=== PATIENT | male | born 1950 | race Caucasian/White ===

== ENCOUNTER → 2016-09-10 | Day surgery (SDC) | payer BC ==
[2016-09-05 16:14] VITALS: BMI 31.6
[~2016-09-10] MED LIST: LACTATED RINGERS 1,000 ML IV ONE; LACTATED RINGERS 1,000 ML IV SCH; LIDOCAINE 1% 20 ML VIAL (10MG/ML) FOR IV START INTRADERMA PRN; LIDOCAINE 1% INJ 10MG/ML (20 ML MDV) ONE; PROPOFOL 10 MG/ML 20 ML VIAL IV ONE
[2016-09-10 07:14] VITALS: TEMP 97.1
[2016-09-10 07:20] LABS: Glucose,Whole Blood 141 mg/dL (75-99)
--- NOTE | 2016-09-10 07:54 | P.PCN ---
Date of Procedure: 09/10/16 Preoperative Diagnosis: Screening colonoscopy Postoperative Diagnosis: Questionable mucosal change in cecum, sigmoid diverticuli, internal hemorrhoids , prominent prostate Procedure(s) Performed: Colonoscopy, cold biopsy of cecal mucosa Anesthesia: MAC Surgeon: Erin Salgado Estimated Blood Loss (ml): 0 IV fluids (ml): 300 Pathology: other (Biopsy cecal mucosa) Condition: stable Disposition: PACU Indications for Procedure: Patient's last colonoscopy 2003 Operative Findings: Questionable mucosal change cecum, sigmoid diverticuli, internal hemorrhoids, prominent prostate Description of Procedure: The patient was taken to the endoscopy suite and following sedation rectal exam was performed. The patient was noted to have good sphincter tone with no masses. The prostate was somewhat prominent. Colonoscope was passed through the anus into the rectum. Was passed into the sigmoid colon which was somewhat tortuous. Was able to be advanced however there were prominent diverticuli noted. Was passed to the splenic flexure through the transverse colon hepatic flexure right colon down to the area of the cecum. Circumferential observation mucosa to cecum revealed some mild prominence of the mucosa near the ileocecal valve and a cold biopsy was obtained. The scope was carefully withdrawn being careful to evaluate the remainder of the mucosa of the colon. No other mucosal abnormalities of concern were identified. The patient was noted as stated to have sigmoid diverticuli. Scope was brought down into the rectum where it was retroflexed and internal hemorrhoids were identified. It should be noted approximately 6 minutes were taken to withdraw the scope from the area of the cecum to the rectum. Impression/plan: 1. Mucosal changes of the cecum 2. Sigmoid diverticuli 3. Internal hemorrhoids 4. Prominent prostate Plan: 1. Await results of biopsy of the cecal area 2. Conservative management of diverticuli and hemorrhoids 3. Will discuss with family prominent prostate and recommend this is followed up further by his primary care physician
--- NOTE | 2016-09-10 07:56 | P.DS ---
Providers Attending physician: Erin Salgado Primary care physician: Wang Godoy Plan - Discharge Summary Discharge Medication List Allopurinol [Zyloprim] 100 mg PO DAILY 09/05/16 [History] Ascorbic Acid [Vitamin C] 500 mg PO DAILY 09/05/16 [History] Aspirin 81 mg PO DAILY 09/05/16 [History] Atorvastatin [Lipitor] 80 mg PO HS 09/05/16 [History] Lisinopril [Zestril] 5 mg PO QAM 09/05/16 [History] [place]-3 Fatty Acids/Fish Oil [Fish Oil 1,000 mg Softgel] 1 each PO DAILY [History] metFORMIN HCL [Metformin HCl] 500 mg PO BID 09/05/16 [History] Follow up Appointment(s)/Referral(s): Wang Godoy MD [Primary Care Provider] - 1 Week (Patient noted to have prominent prostate) Activity/Diet/Wound Care/Special Instructions: Do not drive today Biopsy was obtained and he may note some blood in his stool if this is more than just a small amount please call Dr. Lancaster Discharge Disposition: HOME SELF-CARE
[2016-09-10 08:18] VITALS: BP 122/74; PULSE 69; RESP 18
== END | disposition home or self-care (01) ==
LOC: ORWHC2ENDO 06:47
PROVIDERS: ATTEND Surgery
DX: Z12.11 Encounter for screening for malignant neoplasm of colon (principal); K63.89 Other specified diseases of intestine; Z88.2 Allergy status to sulfonamides; I10 Essential (primary) hypertension; E78.5 Hyperlipidemia, unspecified; M10.9 Gout, unspecified; F17.200 Nicotine dependence, unspecified, uncomplicated; E11.9 Type 2 diabetes mellitus without complications; K64.8 Other hemorrhoids; K57.30 Diverticulosis of large intestine without perforation or abscess without bleeding; N42.9 Disorder of prostate, unspecified; Z79.84 Long term (current) use of oral hypoglycemic drugs; Z79.899 Other long term (current) drug therapy; Z79.82 Long term (current) use of aspirin
CPT/HCPCS: 88305; 45380; J2001; J2704

== ENCOUNTER → 2016-12-17 | Outpatient (CLI) | payer BC ==
[2016-12-17 08:16] LABS: Anion Gap 12 mmol/L; Blood Urea Nitrogen 17 mg/dL (9-20); Calcium 9.1 mg/dL (8.4-10.2); Carbon Dioxide 25 mmol/L (22-30); Chloride 105 mmol/L (98-107); Cholesterol 118 mg/dL (<200); Glucose 123 mg/dL (74-99); HDL Cholesterol 28 mg/dL (40-60); Non-African American GFR(MDRD) >60 (>60 ml/min/1.73 sqM); Potassium 4.6 mmol/L (3.5-5.1); Sodium 142 mmol/L (137-145); Triglycerides 174 mg/dL (<150); Uric Acid 6.7 mg/dL (3.5-8.5)
[2016-12-17 09:56] LABS: Hemoglobin A1C 6.7 % (4.2-6.1)
== END | disposition home or self-care (01) ==
LOC: LABWHC1 07:06
PROVIDERS: ATTEND Internal Medicine
DX: E78.2 Mixed hyperlipidemia (principal); E11.69 Type 2 diabetes mellitus with other specified complication; E87.8 Other disorders of electrolyte and fluid balance, not elsewhere classified; M10.9 Gout, unspecified
CPT/HCPCS: 36415; 80048; 80061; 83036; 84550

== ENCOUNTER → 2019-12-30 | Outpatient (CLI) | payer MEDICARE ==
--- NOTE | 2019-12-30 12:11 | FL ---
EXAMINATION TYPE: FL barium swallow DATE OF EXAM: 12/30/2019 CLINICAL INDICATION: 69-year-old male R13.10, dysphagia, thicker solid consistencies sticking in the throat. COMPARISON: None Total Fluoroscopy Time: 2 minutes 49 seconds Total images: 47 FINDINGS: The swallowing mechanism is normal. There is moderate hypertrophy of the cricopharyngeus muscle. The thoracic portion has a normal course and caliber and normal motility. There is a slightly thickened notch along the lateral aspect of the gastroesophageal junction, referr ed to images 41 and 42. Otherwise, the mucosa is normal and no persistent filling defect is encounte red. There is a moderate-sized sliding hiatal hernia. A single episode of moderate gastroesophageal reflux was encountered during supine Valsalva. IMPRESSION: 1. Moderate CP muscle hypertrophy. Correlate as to if this could be contributing to the patient's sym ptoms. 2. Moderate-sized sliding hiatal hernia with a single episode of moderate gastroesophageal reflux. 3. Slightly thickened notch along the lateral aspect of the gastroesophageal junction probably a prom inent mucosal fold. Consider direct visualization to exclude a small mucosal lesion.
== END | disposition home or self-care (01) ==
LOC: RADUSWWP 10:04
PROVIDERS: ATTEND Family Medicine
DX: K44.9 Diaphragmatic hernia without obstruction or gangrene (principal); M62.89 Other specified disorders of muscle; K21.9 Gastro-esophageal reflux disease without esophagitis
CPT/HCPCS: 74220

== ENCOUNTER 2020-02-10 06:48 | Day surgery (SDC) | payer MEDICARE ==
[2020-02-08 11:18] VITALS: BMI 30.3
[~2020-02-10 06:48] MED LIST changes: -LACTATED RINGERS 1,000 ML IV ONE; -LIDOCAINE 1% 20 ML VIAL (10MG/ML) FOR IV START INTRADERMA PRN; -LIDOCAINE 1% INJ 10MG/ML (20 ML MDV) ONE; -PROPOFOL 10 MG/ML 20 ML VIAL IV ONE
[2020-02-10 07:10] VITALS: TEMP 97.2
[2020-02-10] MEDS ORDERED: LIDOCAINE 1% (10MG/ML) FOR IV START INTRADERMA ONE (07:20)
[2020-02-10 07:22] LABS: Glucose,Whole Blood 134 mg/dL (75-99)
[2020-02-10] MEDS ORDERED: LIDOCAINE 1% INJ 10MG/ML (20 ML MDV) ONE (07:45)
[2020-02-10] MEDS ORDERED: PROPOFOL 10 MG/ML 20 ML VIAL IV ONE (07:45)
[2020-02-10] MEDS ORDERED: GLYCOPYRROLATE 0.2 MG/ML 2 ML VIAL ONE (07:45)
--- NOTE | 2020-02-10 07:49 | P.GSHP ---
History of Present Illness H&P Date: 02/10/20 Chief Complaint: Dysphagia Is a 69-year-old male transferred for EGD. He's had issues with dysphagia. Past Medical History Past Medical History: Diabetes Mellitus, GERD/Reflux, Sleep Apnea/CPAP/BIPAP Additional Past Medical History / Comment(s): no longer sleep apnea since surgery, SOME TROUBLE SWALLOWING AT TIMES, History of Any Multi-Drug Resistant Organisms: None Reported Past Surgical History: Tonsillectomy Additional Past Surgical History / Comment(s): sleep apnea surgery,cyst removed from neck Past Anesthesia/Blood Transfusion Reactions: No Reported Reaction Additional Past Anesthesia/Blood Transfusion Reaction / Comment(s): no hx blood transfusion Smoking Status: Former smoker - Past Family History Mother Family Medical History: No Reported History Father Family Medical History: Cancer Additional Family Medical History / Comment(s): lung Brother(s) Family Medical History: Cancer Additional Family Medical History / Comment(s): PANCREAS CANCER Medications and Allergies Home Medications Medication Instructions Recorded Confirmed Type Allopurinol [Zyloprim] 100 mg PO DAILY 09/05/16 02/08/20 History Ascorbic Acid [Vitamin C] 500 mg PO DAILY 09/05/16 02/08/20 History Aspirin 81 mg PO DAILY 09/05/16 02/08/20 History Atorvastatin [Lipitor] 80 mg PO HS 09/05/16 02/08/20 History lisinopriL [Zestril] 5 mg PO QAM 09/05/16 02/08/20 History metFORMIN HCL [Metformin HCl] 500 mg PO BID 09/05/16 02/08/20 History Allergies Allergy/AdvReac Type Severity Reaction Status Date / Time sulfamethoxazole Allergy Rash/Hives Verified 02/10/20 07:03 [From Bactrim] trimethoprim [From Bactrim] Allergy Rash/Hives Verified 02/10/20 07:03 Surgical - Exam Vital Signs Temp Pulse Resp BP Pulse Ox 97.2 F L 79 16 145/83 96 02/10/20 07:09 02/10/20 07:09 02/10/20 07:09 02/10/20 07:09 02/10/20 07:09 - General well developed, well nourished, no distress - Eyes PERRL - ENT normal pinna - Neck no masses - Respiratory normal expansion - Cardiovascular Rhythm: regular - Abdomen Abdomen: soft, non tender Results - Labs Abnormal Lab Results - Last 24 Hours (Table) 02/10/20 Range/Units 07:21 POC Glucose (mg/dL) 134 H (75-99) mg/dL Assessment and Plan Assessment: Dysphagia. We'll perform EGD
--- NOTE | 2020-02-10 07:54 | P.OP ---
Date of Procedure: 02/10/20 Preoperative Diagnosis: Dysphagia Postoperative Diagnosis: Mild antral gastritis Procedure(s) Performed: EGD Anesthesia: MAC Surgeon: Chris Miles Pathology: other (Antrum, esophagus) Condition: stable Disposition: PACU Description of Procedure: Patient's placed on the endoscopy table in the lateral position. He received IV sedation. The gastroscope placed oropharynx and passed in the esophagus and stomach. Scope was then placed through the pylorus. The first and second portion of the duodenum appeared normal. Scope was then brought back the antrum and this appeared mildly inflamed. A biopsies performed. The scope was then retroflexed and the remainder of the stomach appeared normal. There is no significant hiatal hernia. The previously some evidence of some mild distal esophagitis. A biopsies performed. The proximal esophagus appeared normal. Scope was withdrawn for patient.
[2020-02-10 08:10] VITALS: BP 130/85; PULSE 79; RESP 16
== END 2020-02-10 08:29 | disposition home or self-care (01) ==
LOC: ORWHC2ENDO 06:48
PROVIDERS: ATTEND Surgery
DX: R13.10 Dysphagia, unspecified (principal); K29.50 Unspecified chronic gastritis without bleeding; M10.9 Gout, unspecified; E78.2 Mixed hyperlipidemia; Z87.891 Personal history of nicotine dependence; Z88.2 Allergy status to sulfonamides; Z79.82 Long term (current) use of aspirin; Z79.84 Long term (current) use of oral hypoglycemic drugs; Z79.899 Other long term (current) drug therapy; F32.9 Major depressive disorder, single episode, unspecified; E11.69 Type 2 diabetes mellitus with other specified complication; G47.30 Sleep apnea, unspecified; Z99.89 Dependence on other enabling machines and devices; Z90.89 Acquired absence of other organs; Z80.1 Family history of malignant neoplasm of trachea, bronchus and lung; Z80.0 Family history of malignant neoplasm of digestive organs; I10 Essential (primary) hypertension; K21.9 Gastro-esophageal reflux disease without esophagitis
CPT/HCPCS: 88305; 43239; J2001; J2704

== ENCOUNTER → 2021-01-09 | Outpatient (CLI) | payer MEDICARE ==
--- NOTE | 2021-01-09 23:05 | CTL ---
EXAMINATION TYPE: CT Low Dose Lung DATE OF EXAM ORDERED: 01/09/2021 HISTORY: Percent history tobacco use. Lung cancer screening CT DLP: 115.[address] CTDI: 3.30 mGy Automated exposure control for dose reduction was used. SCREENING VISIT: Initial COMPARISON: None TECHNIQUE: Low dose computed tomography scan was performed through the chest at 1 mm thick sections a nd reconstructed images in the coronal plane at [address] DIAGNOSTIC QUALITY: Satisfactory FINDINGS: LUNG NODULES: Present, detailed below: There is a 0.6 cm posterior medial right midlung nodule. Series [address] is recommended fo r additional evaluation. There is a very faint groundglass opacity within the lateral right apex. Follow-up in 6 months is rec ommended. LUNGS: COPD: Severity: Mild. Emphysematous blebs are within the medial posterior right apex. Additional ble bs and bulla are present. Fibrosis: Severity: None Lymph nodes: None Other findings: None RIGHT PLEURAL SPACE: Effusion: None Calcification: None Thickening: None Pneumothorax: None LEFT PLEURAL SPACE: Effusion: None Calcification: None Thickening: None Pneumothorax: None HEART: Heart Size: Normal Coronary calcification: Moderate Pericardial effusion: None OTHER FINDINGS: Upper abdomen: Small hiatal hernia. Upper abdomen otherwise unremarkable. Bony thorax: Normal Supraclavicular region: Normal Other: Ascending thoracic aorta at the level the main pulmonary artery measures 3.4 cm. The main pul monary artery at the bifurcation measures 2.7 cm. IMPRESSION: 0.6 cm nodule right posterior lung. FOLLOW UP CT CHEST RECOMMENDATION: PET CT recommended for additional evaluation. CT LUNG RAD: Lung-Rad 4A Suspicious
== END | disposition home or self-care (01) ==
LOC: RADCTMAIN 07:07
PROVIDERS: ATTEND Family Medicine
DX: Z12.2 Encounter for screening for malignant neoplasm of respiratory organs (principal); R91.1 Solitary pulmonary nodule; Z87.891 Personal history of nicotine dependence
CPT/HCPCS: 71271

== ENCOUNTER → 2021-01-24 | Outpatient (CLI) | payer MEDICARE ==
--- NOTE | 2021-01-24 07:48 | US ---
EXAMINATION TYPE: US duplex aorta DATE OF EXAM: 01/24/2021 COMPARISON: NONE CLINICAL HISTORY: Z13.6 screening for cardiovascular disease. AAA screening exam very limited due to bowel gas and body habitus. EXAM MEASUREMENTS: Abdominal Aorta: Proximal: 2.0 cm limited Mid: 2.0 x 2.1 cm limited Distal: 1.2cm lilmited Bifurcation: Not visualized due to bowel gas. Aorta not well visualized due to bowel gas. IMPRESSION: 1. Limited examination due to bowel gas. 2. No obvious aneurysm identified. Consider follow-up ultrasound to reevaluate.
== END | disposition home or self-care (01) ==
LOC: RADUSWWP 07:10
PROVIDERS: ATTEND Family Medicine
DX: Z13.6 Encounter for screening for cardiovascular disorders (principal)
CPT/HCPCS: 93979

== ENCOUNTER → 2021-01-26 | Outpatient (CLI) | payer MEDICARE ==
--- NOTE | 2021-01-26 16:23 | PE ---
EXAMINATION TYPE: PET CT fusion skull to thigh DATE OF EXAM: 01/26/2021 COMPARISON: Low-dose lung screening CT January 09, 2021 HISTORY: Solitary pulmonary nodule, abnormal CT TECHNIQUE: Following the intravenous administration of 12.36 mCi of F-18 FDG, whole body images are performed from the skull base to the midthigh. Images are reviewed on the computer in the coronal, a xial, and sagittal planes. Reconstructed rotating images are created on independent workstation and reviewed on the computer. A localization and attenuation correction CT is performed in conjunction with the PET scan. Blood glucose level equals 106 SCAN: Initial Scan FINDINGS: SKULL BASE AND NECK: No suspicious hypermetabolic uptake. CHEST, MEDIASTINUM, AND HILAR REGION: Background mild to moderate underlying emphysematous change is redemonstrated greatest in the upper lungs with stable 5.7 x 5.1 mm posterior superior right lower lo be nodule axial image 106 that is ametabolic. No areas of abnormal hypermetabolic uptake identified. ABDOMEN AND PELVIS: Nonspecific somewhat prominent diffuse bowel uptake.. No adrenal masses. OSSEOUS STRUCTURES: No suspicious hypermetabolic uptake. OTHER CT: There is lipomatous hypertrophy of the intra-arterial septum. There is moderate to severe c oronary artery calcification in the right circumflex and LAD distribution. Small sized hiatal hernia. Liver is diffusely low dense consistent with diffuse fatty infiltration. Scattered and distal colonic diverticula noted. Symmetric small outpouching or diverticulum is suspected from the bladder axial i mage 216. Scattered pelvic phleboliths. Moderate disc space narrowing and vacuum disc phenomena lower lumbar levels. Facet arthropathy lower lumbar spine. IMPRESSION: No suspicious hypermetabolic uptake in the 6 x 5 mm right lower lobe nodule. Advise follow-up CT or low-dose lung screening CT in one year time to reassess.
== END | disposition home or self-care (01) ==
LOC: RADPETMAIN 14:04
PROVIDERS: ATTEND Internal Medicine Critical Care Medicine
DX: R91.1 Solitary pulmonary nodule (principal)
CPT/HCPCS: 78815; A9552

== ENCOUNTER → 2022-01-17 | Outpatient (CLI) | payer MEDICARE ==
--- NOTE | 2022-01-17 08:08 | CTL ---
EXAMINATION TYPE: CT Low Dose Lung DATE OF EXAM ORDERED: 01/17/2022 HISTORY: . Lung cancer screening CT DLP: 81.3 mGycm Automated exposure control for dose reduction was used. SCREENING VISIT: Subsequent COMPARISON: 01/09/2021 TECHNIQUE: Low dose computed tomography scan was performed through the chest at 1 mm thick sections a nd reconstructed images in the coronal plane at [address] DIAGNOSTIC QUALITY: Satisfactory FINDINGS: LUNG NODULES: Present, detailed below: 1. There is a vague lobular density in the posterior right upper lung field measuring 0.7 cm, series 4 image 124. This may be new. 2. Vague pneumonitis changes within lateral left midlung. Series 4 image 149. 3. 0.5 cm nodule posterior right lung, stable. Series 4 image 168. LUNGS: COPD: Severity: Moderate Fibrosis: Severity: Mild chronic changes in the lateral left upper lung field. Series 4 image 12 Lymph nodes: None Other findings: None RIGHT PLEURAL SPACE: Effusion: None Calcification: None Thickening: None Pneumothorax: None LEFT PLEURAL SPACE: Effusion: None Calcification: None Thickening: None Pneumothorax: None HEART: Heart Size: Normal Coronary calcification: Moderate Pericardial effusion: None OTHER FINDINGS: Upper abdomen: Normal Bony thorax: Normal Supraclavicular region: Normal Other: Send thoracic aorta and main pulmonary artery is 3.6 cm. Main pulmonary bifurcation is 2.7 cm. IMPRESSION: Stable appearance of small nodules. Continued monitoring is recommended. Follow-up CT [facility] in [address] CHEST RECOMMENDATION: Follow up CT chest in [address] LUNG RAD: Lung-Rad 3 Probably Benign
== END | disposition home or self-care (01) ==
LOC: RADCTMAIN 06:40
PROVIDERS: ATTEND Internal Medicine Critical Care Medicine
DX: Z12.2 Encounter for screening for malignant neoplasm of respiratory organs (principal); R91.8 Other nonspecific abnormal finding of lung field; Z87.891 Personal history of nicotine dependence
CPT/HCPCS: 71271

== ENCOUNTER → 2022-04-12 | Outpatient (CLI) | payer MEDICARE ==
--- NOTE | 2022-04-12 09:08 | US ---
EXAMINATION TYPE: US duplex aorta DATE OF EXAM: 04/12/2022 COMPARISON: US CLINICAL HISTORY: M54.42 LUMBAGO WITH SCIATICA, LEFT SIDE. AAA screening TECHNIQUE: Multiple sonographic images of the abdominal aorta are obtained. FINDINGS: EXAM MEASUREMENTS: Abdominal Aorta: Proximal: 2.0 x 2.3 cm Mid: 2.0 x 2.3 cm Distal: 2.2 x 2.3 cm Bifurcation: LOU: 0.9 x 1.2 cm SHRADDHA: 1.1 x 1.1 cm BINDING CUTTER NOTES: Large pt body habitus, difficult to visualize aorta Ectatic aorta without evidence of AAA IMPRESSION: Mild abdominal aorta ectasia without evidence for aneurysm.
--- NOTE | 2022-04-12 09:30 | MR ---
EXAMINATION TYPE: MR lumbar spine wo con DATE OF EXAM: 04/12/2022 COMPARISON: None HISTORY: Sciatica, low back pain TECHNIQUE: Multiplanar, multisequence images of the lumbar spine were acquired without IV contrast. L1-L2: Circumferential posterior disc bulge causes mild anterior mass effect on the thecal sac. No si gnificant foraminal encroachment. L2-L3: Posterior broad-based disc bulge causes mild anterior mass effect on the thecal sac. Circumfer ential extension endplate disc complex is present on the foramina are essentially patent, there may b e some minimal encroachment on the inferior aspect of the foramen on the left. L3-L4: Posterior broad-based disc bulge causes mild anterior mass effect on the thecal sac. Circumfer ential extension endplate disc complex encroaches minimally on the inferior aspect of the foramina. L4-L5: Circumferential broad-based disc bulge extends posteriorly, there is anterior mass effect on t he thecal sac, a component of herniation is present extending posterior to the L5 vertebral body supe rior endplate at the posterior aspect. Facet arthropathy with hypertrophy ligamentum flavum is presen t. Circumferential extension endplate disc complex encroaches upon the inferior foramina. L5-S1: Posterior extension endplate disc complex causes anterior mass effect on the thecal sac. There is facet arthropathy, hypertrophic changes contribute to cause some lateral recess encroachment and likely contact with the S1 nerve roots, circumferential extension endplate disc complex encroaches on the right neural foramen and left neural foramen. Lumbar segments are intact. No paraspinal masses are identified. Conus medullaris has a normal appe arance. Lumbar vertebral bodies show preserved height and alignment, there is multilevel spondylosis with endplate discogenic marrow signal change. No significant spinal stenosis. Loss of disc height si gnal is consistent with disc desiccation and degenerative disc disease. IMPRESSION: Degenerative disc disease, facet arthropathy, multilevel
== END | disposition home or self-care (01) ==
LOC: RADUSWWP 08:06
PROVIDERS: ATTEND Internal Medicine
DX: I77.811 Abdominal aortic ectasia (principal); M51.36 Other intervertebral disc degeneration, lumbar region; M47.816 Spondylosis without myelopathy or radiculopathy, lumbar region; M51.26 Other intervertebral disc displacement, lumbar region
CPT/HCPCS: 72148; 93979

== ENCOUNTER → 2023-02-07 | Outpatient (CLI) | payer MEDICARE ==
[2023-02-07 09:00] LABS: African American GFR (CKD) >90 (>60 ml/min/1.73 sqM); Blood Urea Nitrogen 21 mg/dL (9-20); Non-African American GFR(CKD) >90 (>60 ml/min/1.73 sqM)
--- NOTE | 2023-02-07 16:49 | CT ---
EXAMINATION TYPE: CT chest w con DATE OF EXAM: 02/07/2023 COMPARISON: 01/17/2022 HISTORY: Follow up for lung nodule. No prior. CT DLP: 488 mGycm, Automated exposure control for dose reduction was used. CONTRAST: Performed injected with 100 mL of Isovue 300. TECHNIQUE: Axial images were obtained at 5 mm thick sections. Reconstructed images are reviewed on [employer] computer in the coronal plane. FINDINGS: Portion of the thyroid visualized is normal. The 0.6 cm nodules in the posterior medial superior segment right lower lobe. This is stable from [facility]. The density within the posterior right upper lung field previous exam is not evident on the current study. However, a small pneumonitis change be present measuring 0.3 cm posterior lateral rig ht upper lobe. Series 4 image 24. No enlarged mediastinal or hilar adenopathy is evident. The ascending aorta diameter at the level o f the main pulmonary artery is 3.4 cm. The main pulmonary artery diameter at the bifurcation is 2.8 cm. Coronary artery calcification is present. Limited CT sections are obtained through the upper abdomen. Small hiatal hernia is present. There is moderate fatty infiltration of liver. IMPRESSIONS: 1. Benign-appearing nodules. Low-dose CT chest should be performed in one year
== END | disposition home or self-care (01) ==
LOC: RADCTMAIN 08:25
PROVIDERS: ATTEND Internal Medicine Critical Care Medicine
DX: R91.8 Other nonspecific abnormal finding of lung field (principal)
CPT/HCPCS: 82565; 84520; 71260; 36415; Q9967

== ENCOUNTER → 2023-04-04 | Outpatient (CLI) | payer MEDICARE ==
--- NOTE | 2023-04-04 10:55 | XR ---
EXAMINATION TYPE: XR chest 2V DATE OF EXAM: 04/04/2023 COMPARISON: NONE HISTORY: Shortness of breath TECHNIQUE: Frontal and lateral views of the chest are obtained. FINDINGS: Scattered senescent parenchymal changes noted. Hyperinflation compatible with COPD. No evidence for infiltrate. No evidence for atelectasis. Heart size is stable. Mediastinal structures are stable and grossly unremarkable. No evidence for hilar prominence. Degenerative changes dorsal spine. IMPRESSION: 1. No evidence for acute pulmonary disease.
== END | disposition home or self-care (01) ==
LOC: RADXRMAIN 09:59
PROVIDERS: ATTEND Internal Medicine
DX: Z20.822 Contact with and (suspected) exposure to COVID-19 (principal); B34.9 Viral infection, unspecified; R06.02 Shortness of breath
CPT/HCPCS: 71046; 87636

== ENCOUNTER 2023-04-14 15:19 | Observation (INO) | payer MEDICARE ==
[2023-04-14 16:08] LABS: Basophils % (A) 0 %; Eosinophils # (A) 0.3 k/uL (0-0.7); Eosinophils % (A) 3 %; HCT 38.8 % (39.0-53.0); HGB 13.3 gm/dL (13.0-17.5); Lymphocytes # (A) 1.5 k/uL (1.0-4.8); Lymphocytes % (A) 16 %; MCH 31.9 pg (25.0-35.0); MCHC 34.4 g/dL (31.0-37.0); MCV 92.9 fL (80.0-100.0); Mean Platelet Volume 7.3; Monocytes # (A) 0.6 k/uL (0-1.0); Monocytes % (A) 7 %; Neutrophils # (A) 6.9 k/uL (1.3-7.7); Neutrophils % (A) 73 %; Platelet Count 549 k/uL (150-450); RBC 4.18 m/uL (4.30-5.90); RDW 12.5 % (11.5-15.5); WBC 9.5 k/uL (3.8-10.6)
[2023-04-14 16:23] LABS: ALT 71 U/L (4-49); AST 52 U/L (17-59); African American GFR (CKD) >90 (>60 ml/min/1.73 sqM); Albumin 3.4 g/dL (3.5-5.0); Alkaline Phosphatase 159 U/L (38-126); Anion Gap 12 mmol/L; Blood Urea Nitrogen 18 mg/dL (9-20); Calcium 9.1 mg/dL (8.4-10.2); Carbon Dioxide 22 mmol/L (22-30); Chloride 99 mmol/L (98-107); Glucose 186 mg/dL (74-99); Non-African American GFR(CKD) >90 (>60 ml/min/1.73 sqM); Potassium 4.2 mmol/L (3.5-5.1); Sodium 133 mmol/L (137-145); Total Bilirubin 0.7 mg/dL (0.2-1.3); Total Protein 6.4 g/dL (6.3-8.2)
[2023-04-14 16:25] LABS: Partial Thromboplastin Time 25.8 sec (22.0-30.0); Prothrombin Time 11.4 sec (10.0-12.5)
[2023-04-14 16:30] LABS: NT-Pro-B-Type Natriuretic Pept 88 pg/mL
[2023-04-14] MEDS ORDERED: IBUPROFEN 400 MG TAB PO PRN (17:21)
[2023-04-14] MEDS ORDERED: NALOXONE 0.4 MG/ML 1 ML VIAL IV PRN (17:21)
[2023-04-14] MEDS ORDERED: PANTOPRAZOLE 40 MG TABLET PO PRN (17:23)
--- NOTE | 2023-04-14 17:27 | P.HPIM ---
History of Present Illness H&P Date: 04/14/23 Patient is a 73-year-old male with history of hypertension, diabetes, gout, dyslipidemia presenting with chest discomfort and pleurisy. He claims that 2 weeks ago he was feeling ill, felt like he had a cold. He then presented to his PCP, and was given oral antibiotics. His symptoms did not resolve. He was then sent for a chest x-ray which did not show anything significant. He then complained of some chest pain with deep inspiration. He was substernal, nonradiating. He was asked to get a CT chest, which showed new small peripheral enhancing pericardial effusion, possibly in the setting of infectious or inflammatory pericarditis, stable right lower lobe 6 mm nodular density, trace bilateral pleural effusions. He was then referred to come to the ER. Currently he denies any palpitations, chest pain at rest, abdominal pain, nausea, vomiting, urinary or bowel complaints. He does have occasional chills, but denies any fevers. He denies any sick contacts. In the ED, his temperature was 97.6, pulse of 113, respiratory rate 18, blood pressure 133/79, saturating at 95% on room air. WBC 9.5, hemoglobin 13.3, platelets 549, sodium 133, creatinine 0.57, glucose 186, ALT 71, ALP 159, troponin negative, proBNP 88. EKG not yet uploaded. Patient being admitted for observation likely pericarditis with pericardial effusion. Reports of possible atrial fibrillation. Cardiology was consulted. Pertinent positives and negatives as discussed in HPI, a complete review of systems was performed and all other systems are negative. Patient seen and examined at bedside. Vital signs reviewed General: nontoxic, no distress, appears at stated age Derm: warm, dry Head: atraumatic, normocephalic, symmetric Eyes: EOMI, no lid lag, anicteric sclera, pupils equal round reactive to light ENT: Nose and ears atraumatic Neck: No thyromegaly, supple Mouth: no lip lesion, mucus membranes moist Cardiovascular: S1S2 reg, tachycardic, no murmur, no edema Lungs: clear to auscultation bilateral, no rhonchi, no rales, no wheeze, no accessory muscle use Abdominal: soft, nontender to palpation, no guarding, no appreciable organomegaly Ext: no gross muscle atrophy, muscle strength muscle strength 5 out of 5 in all 4 extremities, no contractures Neuro: CN II-XII grossly intact Psych: Alert, oriented, appropriate affect Assessment/Plan: Active: Acute pericarditis, suspected secondary to viral syndrome Pericardial effusion, reported as small on CT Trace bilateral pleural effusion noted on CT Stable right lower lobe 6 mm nodule density Tachycardia Thrombocytosis -Ibuprofen as needed for pain -ESR CRP ordered -Echocardiogram pending -Cardiology consulted -Telemetry -Tachycardia on telemetry appears to be sinus, waiting for EKG to be uploaded -TSH ordered -Thrombocytosis likely in the setting of pericarditis -Blood cultures pending Type 2 diabetes with hyperglycemia -Hold metformin, started on sliding scale insulin, monitor for hypoglycemia Chronic: Hypertension Dyslipidemia Gout The patient is admitted with an anticipated less than 2 midnight stay as observation status for evaluation of pericarditis with pericardial effusion. Surrogate decision-maker: CODE STATUS: Full code DVT prophylaxis: Lovenox Anticipated discharge date: 1-[address]: Home A total of 55 minutes was spent on the care of this complex patient more than 50% of the time was spent in counseling and care coordination. Past Medical History Past Medical History: Diabetes Mellitus, GERD/Reflux, Sleep Apnea/CPAP/BIPAP Additional Past Medical History / Comment(s): no longer sleep apnea since surgery, SOME TROUBLE SWALLOWING AT TIMES, History of Any Multi-Drug Resistant Organisms: None Reported Past Surgical History: Tonsillectomy Additional Past Surgical History / Comment(s): sleep apnea surgery,cyst removed from neck Past Anesthesia/Blood Transfusion Reactions: No Reported Reaction Additional Past Anesthesia/Blood Transfusion Reaction / Comment(s): no hx blood transfusion Past Psychological History: No Psychological Hx Reported Smoking Status: Former smoker - Past Family History Mother Family Medical History: No Reported History Father Family Medical History: Cancer Additional Family Medical History / Comment(s): lung Brother(s) Family Medical History: Cancer Additional Family Medical History / Comment(s): PANCREAS CANCER Medications and Allergies Home Medications Medication Instructions Recorded Confirmed Type Aspirin 81 mg PO DAILY 09/05/16 04/14/23 History Atorvastatin [Lipitor] 80 mg PO HS 09/05/16 04/14/23 History allopurinoL [Zyloprim] 100 mg PO DAILY 09/05/16 04/14/23 History EPINEPHrine (Auto Inject) [Epipen] 0.3 mg IM ONCE PRN 04/14/23 04/14/23 History Metformin Er 750mg Tablet 750 mg PO BID 04/14/23 04/14/23 History Multivitamins, Thera [Multivitamin 1 tab PO DAILY 04/14/23 04/14/23 History (formulary)] Omeprazole [PriLOSEC] 20 mg PO DAILY PRN 04/14/23 04/14/23 History Ubidecarenone [Coenzyme Q10] 200 mg PO DAILY 04/14/23 04/14/23 History lisinopriL [Zestril] 30 mg PO DAILY 04/14/23 04/14/23 History Allergies Allergy/AdvReac Type Severity Reaction Status Date / Time sulfamethoxazole Allergy Rash/Hives Verified 04/14/23 16:08 [From Bactrim] trimethoprim [From Bactrim] Allergy Rash/Hives Verified 04/14/23 16:08 Physical Exam Vitals: Vital Signs Temp Pulse Resp BP Pulse Ox 04/14/23 16:56 98 18 115/64 94 L 04/14/23 15:25 18 04/14/23 15:20 97.6 F 113 H 18 133/79 95 Intake and Output 04/14/23 04/14/23 04/14/23 06:59 14:59 22:59 Other: Weight 77.111 kg Results CBC & Chem 7: 04/14/23 15:44 04/14/23 15:44 Labs: Abnormal Lab Results - Last 24 Hours (Table) 04/14/23 04/14/23 Range/Units 15:44 15:44 RBC 4.18 L (4.30-5.90) m/uL Hct 38.8 L (39.0-53.0) % Plt Count 549 H (150-450) k/uL Sodium 133 L (137-145) mmol/L Creatinine 0.57 L (0.66-1.25) mg/dL Glucose 186 H (74-99) mg/dL ALT 71 H (4-49) U/L Alkaline Phosphatase 159 H (38-126) U/L Albumin 3.4 L (3.5-5.0) g/dL
--- NOTE | 2023-04-14 17:30 | ED ---
General Adult HPI - General Chief complaint: Chest Pain Stated complaint: donte Time Seen by Provider: 04/14/23 15:25 Source: patient, RN notes reviewed, old records reviewed Mode of arrival: ambulatory Limitations: no limitations - History of Present Illness Initial comments: 73-year-old male sent from primary care office with abnormal CT. Patient recei ves CT of the chest which showed apparently pericardial fluid and pericarditis. Patient has had infectious type symptoms including fever, generalize fatigue and cough over the past 2 weeks. He had been treated with antibiotics and states that he seemed to improve but then he developed chest pain over the past several days. He was sent from outpatient CT and then referred emergency department for further evaluation treatment. He was sent with requested cardiology consultation, laboratory testing and echo. - Related Data Home Medications Medication Instructions Recorded Confirmed Aspirin 81 mg PO DAILY 09/05/16 04/14/23 Atorvastatin [Lipitor] 80 mg PO HS 09/05/16 04/14/23 allopurinoL [Zyloprim] 100 mg PO DAILY 09/05/16 04/14/23 EPINEPHrine (Auto Inject) [Epipen] 0.3 mg IM ONCE PRN 04/14/23 04/14/23 Metformin Er 750mg Tablet 750 mg PO BID 04/14/23 04/14/23 Multivitamins, Thera [Multivitamin 1 tab PO DAILY 04/14/23 04/14/23 (formulary)] Omeprazole [PriLOSEC] 20 mg PO DAILY PRN 04/14/23 04/14/23 Ubidecarenone [Coenzyme Q10] 200 mg PO DAILY 04/14/23 04/14/23 lisinopriL [Zestril] 30 mg PO DAILY 04/14/23 04/14/23 Allergies Allergy/AdvReac Type Severity Reaction Status Date / Time sulfamethoxazole Allergy Rash/Hives Verified 04/14/23 16:08 [From Bactrim] trimethoprim [From Bactrim] Allergy Rash/Hives Verified 04/14/23 16:08 Review of Systems ROS Statement: Those systems with pertinent positive or pertinent negative responses have been documented in the HPI. ROS Other: All systems not noted in ROS Statement are negative. Past Medical History Past Medical History: Diabetes Mellitus, GERD/Reflux, Sleep Apnea/CPAP/BIPAP Additional Past Medical History / Comment(s): no longer sleep apnea since surgery, SOME TROUBLE SWALLOWING AT TIMES, History of Any Multi-Drug Resistant Organisms: None Reported Past Surgical History: Tonsillectomy Additional Past Surgical History / Comment(s): sleep apnea surgery,cyst removed from neck Past Anesthesia/Blood Transfusion Reactions: No Reported Reaction Additional Past Anesthesia/Blood Transfusion Reaction / Comment(s): no hx blood transfusion Past Psychological History: No Psychological Hx Reported Smoking Status: Former smoker - Past Family History Mother Family Medical History: No Reported History Father Family Medical History: Cancer Additional Family Medical History / Comment(s): lung Brother(s) Family Medical History: Cancer Additional Family Medical History / Comment(s): PANCREAS CANCER General Exam Limitations: no limitations General appearance: alert, in no apparent distress Head exam: Present: atraumatic, normocephalic Eye exam: Present: normal appearance, PERRL ENT exam: Present: normal exam Neck exam: Present: normal inspection Respiratory exam: Present: normal lung sounds bilaterally. Absent: respiratory distress, wheezes Cardiovascular Exam: Present: tachycardia, irregular rhythm GI/Abdominal exam: Present: soft. Absent: distended, tenderness, guarding Extremities exam: Present: normal inspection, normal capillary refill Neurological exam: Present: alert, oriented X3 Psychiatric exam: Present: normal affect, normal mood Skin exam: Present: warm, dry, intact Course Vital Signs 04/14/23 04/14/23 04/14/23 15:20 15:25 16:56 Temperature 97.6 F Pulse Rate 113 H 98 Respiratory 18 18 18 Rate Blood Pressure 133/79 115/64 O2 Sat by Pulse 95 94 L Oximetry Medical Decision Making - Medical Decision Making Was pt. sent in by a medical professional or institution (, PA, WASTE REMOVALIST, urgent care, hospital, or long-term...) When possible be specific @ -[Sent in by primary care provider Dr. Clifford Did you speak to anyone other than the patient for history (EMS, parent, family, police, friend...)? What history was obtained from this source @ -[No] Did you review nursing and triage notes (agree or disagree)? Why? @ -[I reviewed and agree with nursing and triage notes] Were old charts reviewed (outside hosp., previous admission, EMS record, old EKG, old radiological studies, urgent care reports/EKG's, long-term records)? Report findings @ -[No old charts were reviewed] Differential Diagnosis (chest pain, altered mental status, abdominal pain women, abdominal pain men, vaginal bleeding, weakness, fever, dyspnea, syncope, headache, dizziness, GI bleed, back pain, seizure, CVA, palpatations, mental health, musculoskeletal)? @ -[Differential Chest Pain: Stable Angina, Unstable Angina, STEMI, NSTEMI Aortic Dissection, Pneumothorax, Musculoskeletal, Esophageal Spasm GERD, Cholecystitis, Pancreatitis, Zoster, this is not meant to be an all-inclusive list. EKG interpreted by me (3pts min.). @ EKG atrial fibrillation with RVR right bundle-branch block, rate of 111, QRS duration 138, QTC [address] segment elevation X-rays interpreted by me (1pt min.). @ -[None done] CT interpreted by me (1pt min.). @ -[None done] U/S interpreted by me (1pt. min.). @ -[None done] What testing was considered but not performed or refused? (CT, X-rays, U/S, labs)? Why? @ -[None] What meds were considered but not given or refused? Why? @ -[None] Did you discuss the management of the patient with other professionals (professionals i.e. , PA, WASTE REMOVALIST, lab, RT, psych nurse, social work professor, export packer, teacher, chemistry technical officer, immigration case worker)? Give summary @ Sound physician group smoking cessation discussed for >3mins.? @ -[No] Was critical care preformed (if so, how long)? @ -[No] Were there social determinants of health that impacted care today? How? (Homelessness, low income, unemployed, alcoholism, drug addiction, transportation, low edu. Level, literacy, decrease access to med. care, fpc, rehab)? @ -[No] Was there de-escalation of care discussed even if they declined (Discuss DNR or withdrawal of care, Hospice)? DNR status @ -[No] What co-morbidities impacted this encounter? (DM, HTN, Smoking, COPD, CAD, Cancer, CVA, ARF, Chemo, Hep., AIDS, mental health diagnosis, sleep apnea, morbid obesity)? @ -[None] Was patient admitted / discharged? Hospital course, mention meds given and route, prescriptions, significant lab abnormalities, going to OR and other pertinent info. @ 73-year-old male sent in by primary care for evaluation of chest pain and CT evidence of pericardial effusion. Patient is in atrial fibrillation which is new for this patient. He's had approximately 2 weeks of general malaise, fever and developed chest pain over the past several days. Patient's troponin is negative. He has normal white blood cell count. His BMP is negative. He will be admitted for echo, cardiology consultation.] Undiagnosed new problem with uncertain prognosis? @ -[No] Drug Therapy requiring intensive monitoring for toxicity (Heparin, Nitro, Insulin, Cardizem)? @ -[No] Were any procedures done? @ -[No] Diagnosis/symptom? @ -[Pericarditis, Pericardial effusion Acute, or Chronic, Acute Side effects of treatment? @ -[No] Exacerbation, Progression, or Severe Exacerbation? @ -[No] Poses a threat to life or bodily function? How? (Chest pain, [place], SD, pneumonia, PE, COPD, DKA, ARF, appy, cholecystitis, CVA, Diverticulitis, Homicidal, Suicidal, threat to staff... and all critical care pts) @ -[Yes, arrhythmia, tamponade - Lab Data Result diagrams: 04/14/23 15:44 04/14/23 15:44 Lab Results 04/14/23 04/14/23 04/14/23 Range/Units 15:44 15:44 15:44 WBC 9.5 (3.8-10.6) k/uL RBC 4.18 L (4.30-5.90) m/uL Hgb 13.3 (13.0-17.5) gm/dL Hct 38.8 L (39.0-53.0) % MCV 92.9 (80.0-100.0) fL MCH 31.9 (25.0-35.0) pg MCHC 34.4 (31.0-37.0) g/dL RDW 12.5 (11.5-15.5) % Plt Count 549 H (150-450) k/uL MPV 7.3 Neutrophils % 73 % Lymphocytes % 16 % Monocytes % 7 % Eosinophils % 3 % Basophils % 0 % Neutrophils # 6.9 (1.3-7.7) k/uL Lymphocytes # 1.5 (1.0-4.8) k/uL Monocytes # 0.6 (0-1.0) k/uL Eosinophils # 0.3 (0-0.7) k/uL Basophils # 0.0 (0-0.2) k/uL PT 11.4 (10.0-12.5) sec INR 1.0 (<1.2) APTT 25.8 (22.0-30.0) sec Sodium 133 L (137-145) mmol/L Potassium 4.2 (3.5-5.1) mmol/L Chloride 99 (98-107) mmol/L Carbon Dioxide 22 (22-30) mmol/L Anion Gap 12 mmol/L BUN 18 (9-20) mg/dL Creatinine 0.57 L (0.66-1.25) mg/dL Est GFR (CKD-EPI)AfAm >90 (>60 ml/min/1.73 sqM) Est GFR (CKD-EPI)NonAf >90 (>60 ml/min/1.73 sqM) Glucose 186 H (74-99) mg/dL Plasma Lactic Acid Prakash (0.7-2.0) mmol/L Calcium 9.1 (8.4-10.2) mg/dL Magnesium 2.0 (1.6-2.3) mg/dL Total Bilirubin 0.7 (0.2-1.3) mg/dL AST 52 (17-59) U/L ALT 71 H (4-49) U/L Alkaline Phosphatase 159 H (38-126) U/L Troponin I (0.000-0.034) ng/mL NT-Pro-B Natriuret Pep 88 pg/mL Total Protein 6.4 (6.3-8.2) g/dL Albumin 3.4 L (3.5-5.0) g/dL 04/14/23 04/14/23 Range/Units 15:44 15:44 WBC (3.8-10.6) k/uL RBC (4.30-5.90) m/uL Hgb (13.0-17.5) gm/dL Hct (39.0-53.0) % MCV (80.0-100.0) fL MCH (25.0-35.0) pg MCHC (31.0-37.0) g/dL RDW (11.5-15.5) % Plt Count (150-450) k/uL MPV Neutrophils % % Lymphocytes % % Monocytes % % Eosinophils % % Basophils % % Neutrophils # (1.3-7.7) k/uL Lymphocytes # (1.0-4.8) k/uL Monocytes # (0-1.0) k/uL Eosinophils # (0-0.7) k/uL Basophils # (0-0.2) k/uL PT (10.0-12.5) sec INR (<1.2) APTT (22.0-30.0) sec Sodium (137-145) mmol/L Potassium (3.5-5.1) mmol/L Chloride (98-107) mmol/L Carbon Dioxide (22-30) mmol/L Anion Gap mmol/L BUN (9-20) mg/dL Creatinine (0.66-1.25) mg/dL Est GFR (CKD-EPI)AfAm (>60 ml/min/1.73 sqM) Est GFR (CKD-EPI)NonAf (>60 ml/min/1.73 sqM) Glucose (74-99) mg/dL Plasma Lactic Acid Prakash 1.2 (0.7-2.0) mmol/L Calcium (8.4-10.2) mg/dL Magnesium (1.6-2.3) mg/dL Total Bilirubin (0.2-1.3) mg/dL AST (17-59) U/L ALT (4-49) U/L Alkaline Phosphatase (38-126) U/L Troponin I <0.012 (0.000-0.034) ng/mL NT-Pro-B Natriuret Pep pg/mL Total Protein (6.3-8.2) g/dL Albumin (3.5-5.0) g/dL Disposition Clinical Impression: Chest pain, Acute pericarditis, Atrial fibrillation Disposition: ADMITTED IP TO THIS HOSP Condition: Stable Is patient prescribed a controlled substance at d/c from ED?: No Referrals: Ryan Keller MD [Primary Care Provider] - 1-2 days Time of Disposition: 17:28
[2023-04-14 18:53] LABS: C Reactive Protein 6.2 mg/dL (<1.0)
[2023-04-14 19:55] LABS: T4, Free (Free Thyroxine) 1.73 ng/dL (0.78-2.19)
[2023-04-14 20:40] LABS: Glucose,Whole Blood 83 mg/dL (70-110)
[2023-04-14] MEDS: ATORVASTATIN 80 MG TAB PO SCH (20:44)
[2023-04-15 08:25] LABS: Glucose,Whole Blood 143 mg/dL (70-110)
[2023-04-15] MEDS: allopurinoL 100 MG TAB PO SCH (08:35)
[2023-04-15] MEDS: MULTIVITAMINS, THERA 1 EACH TAB PO SCH (08:35)
[2023-04-15] MEDS: ASPIRIN 81 MG PO SCH (08:35)
[2023-04-15] MEDS: ENOXAPARIN 40 MG/0.4 ML SYRINGE SQ SCH (08:36)
[2023-04-15] MEDS: lisinopriL 10 MG TAB PO SCH (08:38)
[2023-04-15 08:56] LABS: Basophils % (A) 0 %; Eosinophils # (A) 0.1 k/uL (0-0.7); Eosinophils % (A) 2 %; HCT 43.2 % (39.0-53.0); HGB 14.3 gm/dL (13.0-17.5); Lymphocytes # (A) 1.5 k/uL (1.0-4.8); Lymphocytes % (A) 21 %; MCV 93.9 fL (80.0-100.0); Mean Platelet Volume 7.4; Monocytes # (A) 0.6 k/uL (0-1.0); Monocytes % (A) 9 %; Neutrophils # (A) 4.8 k/uL (1.3-7.7); Neutrophils % (A) 67 %; Platelet Count 581 k/uL (150-450); RDW 12.7 % (11.5-15.5); WBC 7.1 k/uL (3.8-10.6)
[2023-04-15 09:07] LABS: ALT 69 U/L (4-49); AST 51 U/L (17-59); African American GFR (CKD) >90 (>60 ml/min/1.73 sqM); Albumin 3.5 g/dL (3.5-5.0); Alkaline Phosphatase 127 U/L (38-126); Anion Gap 10 mmol/L; Blood Urea Nitrogen 13 mg/dL (9-20); Calcium 9.3 mg/dL (8.4-10.2); Carbon Dioxide 26 mmol/L (22-30); Chloride 100 mmol/L (98-107); Glucose 113 mg/dL (74-99); Non-African American GFR(CKD) >90 (>60 ml/min/1.73 sqM); Potassium 5.1 mmol/L (3.5-5.1); Sodium 136 mmol/L (137-145); Total Bilirubin 0.9 mg/dL (0.2-1.3); Total Protein 6.7 g/dL (6.3-8.2)
[2023-04-15] MEDS ORDERED: COLCHICINE 0.6 MG EACH PO SCH (10:15)
[2023-04-15] MEDS ORDERED: DEXTROSE 50% SYRINGE 50 ML IVP PRN ×2 (12:01)
[2023-04-15] MEDS: INSULIN ASPART (NovoLOG) 100 UNIT/ML VIAL SQ SCH ×3 (12:11→21:29)
[2023-04-15 12:12] LABS: Glucose,Whole Blood 115 mg/dL (70-110)
--- NOTE | 2023-04-15 13:35 | P.PN ---
Subjective Progress Note Date: 04/15/23 Hospital Course: 73-year-old male with history of hypertension, diabetes, gout, dyslipidemia presenting with chest discomfort and pleurisy. In the ED, his temperature was 97.6, pulse of 113, respiratory rate 18, blood pressure 133/79, saturating at 95% on room air. WBC 9.5, hemoglobin 13.3, platelets 549, sodium 133, creatinine 0.57, glucose 186, ALT 71, ALP 159, troponin negative, proBNP 88. EKG not yet uploaded. Patient being admitted for observation likely pericarditis with pericardial effusion. Reports of possible atrial fibrillation. Cardiology was consulted. Subjective: She is seen and examined at bedside. No acute events overnight. Chest pain has improved. Pertinent positives and negatives as discussed above, a complete review of systems was performed and all other systems are negative. Vitals Signs Reviewed. General: nontoxic, no distress, appears at stated age Derm: warm, dry Head: atraumatic, normocephalic, symmetric Eyes: EOMI, no lid lag, anicteric sclera Mouth: no lip lesion, mucus membranes moist Cardiovascular: S1S2 reg, no murmur Lungs: CTA bilateral, no rhonchi, no rales , no accessory muscle use Abdominal: soft, nontender to palpation, no guarding, no appreciable organomegaly Ext: no gross muscle atrophy, no edema, no contractures Neuro: CN II-XI grossly intact, no focal neuro deficits Psych: Alert, oriented, appropriate affect Data Reviewed Today: Pertinent Labs: WBC 7.1, hemoglobin 14.3, platelets 581, sodium 136, creatinine 0.6, ALT 69, ALP 127 Imaging: EKG independently interpreted from this morning, shows right bundle branch block with sinus tachycardia. Assessment and Plan: Active: Acute pericarditis, suspected secondary to viral syndrome Pericardial effusion, reported as small on CT Trace bilateral pleural effusion noted on CT Stable right lower lobe 6 mm nodule density Sinus tachycardia Thrombocytosis -On ibuprofen 600 mg 3 times a day and colchicine 0.6 mg daily -ESR AND CRP ELEVATED -Echocardiogram pending -Cardiology consulted, pending recommendations -Telemetry -Thrombocytosis likely in the setting of pericarditis -Blood cultures pending Type 2 diabetes with hyperglycemia -Hold metformin, started on sliding scale insulin, monitor for hypoglycemia Chronic: Hypertension Dyslipidemia Gout DVT ppx: Lovenox Code status: Full code Anticipated discharge place: Home Anticipated discharge time: 1-2 days Objective - Vital Signs Vital signs: Vital Signs Temp 97 F L 04/15/23 08:00 Pulse 91 04/15/23 12:00 Resp 16 04/15/23 12:00 BP 103/61 04/15/23 12:00 Pulse Ox 97 04/15/23 12:00 FiO2 Intake & Output 04/14/23 04/15/23 04/15/23 18:59 06:59 18:59 Weight 77.111 kg - Labs CBC & Chem 7: 04/15/23 07:33 04/15/23 07:33 Labs: Abnormal Lab Results - Last 24 Hours (Table) 04/14/23 04/14/23 04/14/23 Range/Units 15:44 15:44 18:38 RBC 4.18 L (4.30-5.90) m/uL Hct 38.8 L (39.0-53.0) % Plt Count 549 H (150-450) k/uL ESR 72 H (0-20) mm/Hr Sodium 133 L (137-145) mmol/L Creatinine 0.57 L (0.66-1.25) mg/dL Glucose 186 H (74-99) mg/dL POC Glucose (mg/dL) (70-110) mg/dL ALT 71 H (4-49) U/L Alkaline Phosphatase 159 H (38-126) U/L C-Reactive Protein (<1.0) mg/dL Albumin 3.4 L (3.5-5.0) g/dL TSH (0.465-4.680) mIU/L 04/14/23 04/15/23 04/15/23 Range/Units 18:38 07:33 07:33 RBC (4.30-5.90) m/uL Hct (39.0-53.0) % Plt Count 581 H (150-450) k/uL ESR (0-20) mm/Hr Sodium 136 L (137-145) mmol/L Creatinine 0.60 L (0.66-1.25) mg/dL Glucose 113 H (74-99) mg/dL POC Glucose (mg/dL) (70-110) mg/dL ALT 69 H (4-49) U/L Alkaline Phosphatase 127 H (38-126) U/L C-Reactive Protein 6.2 H (<1.0) mg/dL Albumin (3.5-5.0) g/dL TSH 0.362 L (0.465-4.680) mIU/L 04/15/23 04/15/23 Range/Units 08:24 12:10 RBC (4.30-5.90) m/uL Hct (39.0-53.0) % Plt Count (150-450) k/uL ESR (0-20) mm/Hr Sodium (137-145) mmol/L Creatinine (0.66-1.25) mg/dL Glucose (74-99) mg/dL POC Glucose (mg/dL) 143 H 115 H (70-110) mg/dL ALT (4-49) U/L Alkaline Phosphatase (38-126) U/L C-Reactive Protein (<1.0) mg/dL Albumin (3.5-5.0) g/dL TSH (0.465-4.680) mIU/L
--- NOTE | 2023-04-15 14:19 | P.CRDCN ---
History of Present Illness Consult date: 04/15/23 Reason for Consult (text): Pericarditis, pericardial effusion History of present illness: History of present illness: This is a 73-year-old male patient of Dr. Lala with past medical history of hypertension, dyslipidemia, diabetes mellitus type 2, gout, benign prostatic hypertrophy, right bundle branch block. We have been asked to evaluate the patient for pericarditis, pericardial effusion. Patient was sent to the emergency center from his primary care office due to abnormal CAT scan of the chest. CT of the chest with contrast performed yesterday revealed new small peripheral enhancing pericardial effusion. Findings can be seen with infectious or inflammatory pericarditis. Stable right lower lobe 6 mm nodule density. Trace bilateral pleural effusions. Patient states that for the past 2 weeks he had flulike symptoms with shortness of breath feeling tired and more drowsy and taking naps. He saw his PCP thought initially he had pneumonia but chest x-ray confirmed that he did not. He was then sent for CAT scan of the chest. He states he has had some chest pain/pressure over the past couple weeks he has this with deep breathing and is located in the center of his chest but states that it is improved today. Also pain is positional and when he is sitting up it is worse. In general he is feeling better today. EKG sinus rhythm with PACs ventricular rate of 111, #2 sinus tachycardia with right bundle branch block 103 bpm. EKG does not show classic signs of pericarditis. WBC 9.5, hemoglobin 13.3, platelet count 549. Sed rate 72. INR 1. Sodium 133, potassium 4.2, creatinine 0.57. ALT 71, alkaline phosphatase 159 otherwise liver function tests are normal. Magnesium 2.0. Troponin negative 1. TSH 0.362 with normal free T4 of 1.73. C-reactive protein 6.2. Home cardiac medications: Aspirin 81 mg daily, atorvastatin 80 mg at bedtime, lisinopril 30 mg daily. Review Of Systems: At the time of my evaluation: Constitutional: No fever, no chills. No weakness, +fatigue. EENT: No headache. No dizziness. Lungs: + shortness of breath, cough, no sputum production. No wheezing. Cardiovascular: + chest pain, no lower extremity edema. No palpitations. No paroxysmal nocturnal dyspnea. No orthopnea. No lightheadedness or dizziness. No syncopal episodes. Abdominal: No abdominal pain. No nausea, vomiting. No diarrhea. No constipation. No bloody or tarry stools. Genitourinary: No dysuria.. No urinary retention. Musculoskeletal: No myalgias. No muscle weakness, no frequent falls. No back pain. No neck pain. Integumentary: No wounds. No rash. No unusual bruising. Neurologic: No aphasia. No facial droop. No change in mentation. No head injury. No headache. Physical examination: Gen: This is a 73-year-old male. He is resting in bed and appears to be comfortable and in no acute distress. VS: reviewed HEENT: Head is atraumatic, normocephalic. Pupils equal, round. Sclerae is anicteric. NECK: Supple. No JVD. LUNGS: Clear to auscultation. No wheezes or rhonchi. No intercostal retractions. HEART: Regular rate and rhythm. No murmur. ABDOMEN: Soft No tenderness. EXTREMITIES: No pedal edema. No calf tenderness. NEUROLOGICAL: Patient is awake, alert and oriented x3. Assessment: Likely pericarditis Recent viral illness Hypertension Dyslipidemia Diabetes Gout Plan: Continue patient on colchicine daily for 6 weeks and Motrin [id number] Obtain 2-D echocardiogram and Doppler study to assess cardiac structure and function If no tamponade on echocardiogram, patient is cleared for discharge home. Thank you kindly for this consultation. Nurse practitioner note has been reviewed, I agree with documented findings and plan of care. Patient was seen and examined. Past Medical History Past Medical History: Diabetes Mellitus, GERD/Reflux, Sleep Apnea/CPAP/BIPAP Additional Past Medical History / Comment(s): no longer sleep apnea since surgery, SOME TROUBLE SWALLOWING AT TIMES, History of Any Multi-Drug Resistant Organisms: None Reported Past Surgical History: Tonsillectomy Additional Past Surgical History / Comment(s): sleep apnea surgery,cyst removed from neck Past Anesthesia/Blood Transfusion Reactions: No Reported Reaction Additional Past Anesthesia/Blood Transfusion Reaction / Comment(s): no hx blood transfusion Past Psychological History: No Psychological Hx Reported Smoking Status: Former smoker - Past Family History Mother Family Medical History: No Reported History Father Family Medical History: Cancer Additional Family Medical History / Comment(s): lung Brother(s) Family Medical History: Cancer Additional Family Medical History / Comment(s): PANCREAS CANCER Medications and Allergies Home Medications Medication Instructions Recorded Confirmed Type Aspirin 81 mg PO DAILY 09/05/16 04/14/23 History Atorvastatin [Lipitor] 80 mg PO HS 09/05/16 04/14/23 History allopurinoL [Zyloprim] 100 mg PO DAILY 09/05/16 04/14/23 History EPINEPHrine (Auto Inject) [Epipen] 0.3 mg IM ONCE PRN 04/14/23 04/14/23 History Metformin Er 750mg Tablet 750 mg PO BID 04/14/23 04/14/23 History Multivitamins, Thera [Multivitamin 1 tab PO DAILY 04/14/23 04/14/23 History (formulary)] Omeprazole [PriLOSEC] 20 mg PO DAILY PRN 04/14/23 04/14/23 History Ubidecarenone [Coenzyme Q10] 200 mg PO DAILY 04/14/23 04/14/23 History lisinopriL [Zestril] 30 mg PO DAILY 04/14/23 04/14/23 History Allergies Allergy/AdvReac Type Severity Reaction Status Date / Time sulfamethoxazole Allergy Rash/Hives Verified 04/14/23 16:08 [From Bactrim] trimethoprim [From Bactrim] Allergy Rash/Hives Verified 04/14/23 16:08 Physical Exam Vitals: Vital Signs Temp Pulse Resp BP Pulse Ox 04/15/23 08:00 97 F L 99 18 114/91 98 04/15/23 06:45 95 18 114/91 96 04/15/23 03:00 97 18 98/70 98 04/15/23 00:46 98.3 F 93 17 109/67 96 04/14/23 20:45 101 H 18 125/78 94 L 04/14/23 18:39 95 18 109/67 94 L 04/14/23 16:56 98 18 115/64 94 L 04/14/23 15:25 18 04/14/23 15:20 97.6 F 113 H 18 133/79 95 Intake and Output 04/14/23 04/15/23 04/15/23 22:59 06:59 14:59 Other: Weight 77.111 kg Results 04/15/23 07:33 04/15/23 07:33 Cardiac Enzymes 04/14/23 04/14/23 Range/Units 15:44 15:44 AST 52 (17-59) U/L Troponin I <0.012 (0.000-0.034) ng/mL Coagulation 04/14/23 Range/Units 15:44 PT 11.4 (10.0-12.5) sec APTT 25.8 (22.0-30.0) sec CBC 04/14/23 Range/Units 15:44 WBC 9.5 (3.8-10.6) k/uL RBC 4.18 L (4.30-5.90) m/uL Hgb 13.3 (13.0-17.5) gm/dL Hct 38.8 L (39.0-53.0) % Plt Count 549 H (150-450) k/uL Comprehensive Metabolic Panel 04/14/23 Range/Units 15:44 Sodium 133 L (137-145) mmol/L Potassium 4.2 (3.5-5.1) mmol/L Chloride 99 (98-107) mmol/L Carbon Dioxide 22 (22-30) mmol/L BUN 18 (9-20) mg/dL Creatinine 0.57 L (0.66-1.25) mg/dL Glucose 186 H (74-99) mg/dL Calcium 9.1 (8.4-10.2) mg/dL AST 52 (17-59) U/L ALT 71 H (4-49) U/L Alkaline Phosphatase 159 H (38-126) U/L Total Protein 6.4 (6.3-8.2) g/dL Albumin 3.4 L (3.5-5.0) g/dL Current Medications Generic Name Dose Route Start Last Admin Trade Name Freq PRN Reason Stop Dose Admin Allopurinol 100 mg 04/15/23 09:00 Allopurinol 100 Mg Tab PO DAILY [facility] Aspirin 81 mg 04/15/23 09:00 Aspirin 81 Mg PO DAILY [facility] Atorvastatin Calcium 80 mg 04/14/23 21:00 04/14/23 20:44 Atorvastatin 80 Mg Tab PO 80 mg HS [facility] Administration Enoxaparin Sodium 40 mg 04/15/23 09:00 Enoxaparin 40 Mg/0.4 Ml Syringe SQ DAILY [facility] Ibuprofen 400 mg 04/14/23 17:21 Ibuprofen 400 Mg Tab PO Q6HR PRN Mild Pain or Fever > 100.5 Lisinopril 30 mg 04/15/23 09:00 Lisinopril 10 Mg Tab PO DAILY [facility] Multivitamins 1 each 04/15/23 09:00 Multivitamins, Thera 1 Each Tab PO DAILY [facility] Naloxone HCl 0.2 mg 04/14/23 17:21 Naloxone 0.4 Mg/Ml 1 Ml Vial IV Q2M PRN Opioid Reversal Pantoprazole Sodium 40 mg 04/14/23 17:23 Pantoprazole 40 Mg Tablet PO DAILY PRN GI Upset Intake and Output 04/14/23 04/15/23 04/15/23 22:59 06:59 14:59 Other: Weight 77.111 kg 04/14/23 15:44 04/14/23 15:44
[2023-04-15] MEDS: IBUPROFEN 600 MG TAB PO SCH ×2 (16:29→21:32)
[2023-04-15 16:57] LABS: Glucose,Whole Blood 145 mg/dL (70-110)
[2023-04-15 20:20] LABS: Glucose,Whole Blood 104 mg/dL (70-110)
[2023-04-15] MEDS: ATORVASTATIN 80 MG TAB PO SCH (21:32)
--- NOTE | 2023-04-15 21:54 | CA ---
Transthoracic Echo Report Name: Taras Evans Age: 73 Gender: M : 1950 Exam Date: 04/15/2023 14:35 Exam Location: [place] Echo Ht (in): 65 Wt (lb): 170 Ordering Physician: Keven Mejia MD Attending/Referring Phys: [id number], Jackie Associate Professor Of Law [facility] Procedure CPT: Indications: CP Cardiac Hx: Technical Quality: Technically difficult study Contrast 1: Total Dose (mL): Contrast 2: Total Dose (mL): MEASUREMENTS (Male / Female) Normal Values 2D ECHO LV Diastolic Diameter PLAX 4.2 cm 4.2 - 5.9 / 3.9 - 5.3 cm LV Systolic Diameter PLAX 2.5 cm IVS Diastolic Thickness 1.1 cm 0.6 - 1.0 / 0.6 - 0.9 cm LVPW Diastolic Thickness 1.1 cm 0.6 - 1.0 / 0.6 - 0.9 cm LV Relative Wall Thickness 0.5 LVOT Diameter 2.0 cm M-MODE Aortic Root Diameter MM 2.8 cm LA Systolic Diameter MM 4.9 cm LA Ao Ratio MM 1.7 AV Cusp Separation MM 2.0 cm DOPPLER AV Peak Velocity 180.2 cm/s AV Peak Gradient 13.0 mmHg AV Mean Velocity 114.2 cm/s AV Mean Gradient 6.1 mmHg AV Velocity Time Integral 26.3 cm LVOT Peak Velocity 141.5 cm/s LVOT Peak Gradient 8.0 mmHg LVOT Velocity Time Integral 20.9 cm LVOT Stroke Volume 67.6 cm??? LVOT Stroke Volume Index 36.6 ml/m??? LVOT Cardiac Index 3484.8 cm???/min???m??? AV Area Cont Eq vti 2.6 cm??? AV Area Cont Eq pk 2.5 cm??? Mitral E Point Velocity 77.2 cm/s Mitral A Point Velocity 113.3 cm/s Mitral E to A Ratio 0.7 MV Deceleration Time 172.1 ms LV E' Lateral Velocity 10.5 cm/s Mitral E to LV E' Lateral Ratio 7.3 LV E' Septal Velocity 8.6 cm/s Mitral E to LV E' Septal Ratio 9.0 Right Atrial Pressure 3.0 mmHg FINDINGS Left Ventricle Mildly increased left ventricular wall thickness. Left ventricular cavity size normal. Normal left ventricular systolic function with no obvious regional wall motion abnormalities. Left ventricular ejection fraction is estimated at 60- 65%. Right Ventricle Normal right ventricular size. Unable to estimate the right ventricular systolic pressure. Right Atrium Normal right atrial size. Left Atrium Mild left atrial dilatation. Mitral Valve Mitral valve thickened. Trace mitral regurgitation. Aortic Valve Trileaflet aortic valve. Diffuse thickening (sclerosis) of the aortic valve cusps without reduced excursion. No aortic regurgitation. Tricuspid Valve Structurally normal tricuspid valve. No tricuspid regurgitation. Pulmonic Valve Pulmonic valve not well visualized. Pericardium Small pericardial effusion. No echocardiographic findings to suggest a hemodynamically significant pericardial effusion. Aorta Normal size aortic root and proximal ascending aorta. CONCLUSIONS Technically difficult study. Left ventricular ejection fraction is estimated at 60-65%. No obvious regional wall motion abnormalities. No significant valvular dysfunction Sclerotic aortic valve without stenosis Normal LV size and function RVSP could not be estimated Previewed by: Dr Diaz Harris (Electronically Signed) Final Date: 15 April 2023 21:53
[2023-04-16 06:35] LABS: Glucose,Whole Blood 127 mg/dL (70-110)
[2023-04-16] MEDS: INSULIN ASPART (NovoLOG) 100 UNIT/ML VIAL SQ SCH ×2 (06:40→11:51)
[2023-04-16] MEDS: IBUPROFEN 600 MG TAB PO SCH (08:39)
[2023-04-16] MEDS: lisinopriL 10 MG TAB PO SCH (08:39)
[2023-04-16] MEDS: ASPIRIN 81 MG PO SCH (08:39)
[2023-04-16] MEDS: allopurinoL 100 MG TAB PO SCH (08:39)
[2023-04-16] MEDS: MULTIVITAMINS, THERA 1 EACH TAB PO SCH (08:39)
[2023-04-16] MEDS: ENOXAPARIN 40 MG/0.4 ML SYRINGE SQ SCH (08:41)
[2023-04-16] MEDS ORDERED: COLCHICINE 0.6 MG EACH PO SCH (09:00)
[2023-04-16 11:35] LABS: Glucose,Whole Blood 97 mg/dL (70-110)
[2023-04-16 11:45] VITALS: BP 106/62; PULSE 84; RESP 17; TEMP 98.5
--- NOTE | 2023-04-16 12:11 | P.PN ---
Subjective Progress Note Date: 04/16/23 History of present illness: This is a 73-year-old male patient of Dr. Lala with past medical history of hypertension, dyslipidemia, diabetes mellitus type 2, gout, benign prostatic hypertrophy, right bundle branch block. We have been asked to evaluate the patient for pericarditis, pericardial effusion. Patient was sent to the emergency center from his primary care office due to abnormal CAT scan of the chest. CT of the chest with contrast performed yesterday revealed new small peripheral enhancing pericardial effusion. Findings can be seen with infectious or inflammatory pericarditis. Stable right lower lobe 6 mm nodule density. Trace bilateral pleural effusions. Patient states that for the past 2 weeks he had flulike symptoms with shortness of breath feeling tired and more drowsy and taking naps. He saw his PCP thought initially he had pneumonia but chest x-ray confirmed that he did not. He was then sent for CAT scan of the chest. He states he has had some chest pain/pressure over the past couple weeks he has this with deep breathing and is located in the center of his chest but states that it is improved today. Also pain is positional and when he is sitting up it is worse. In general he is feeling better today. EKG sinus rhythm with PACs ventricular rate of 111, #2 sinus tachycardia with right bundle branch block 103 bpm. EKG does not show classic signs of pericarditis. WBC 9.5, hemoglobin 13.3, platelet count 549. Sed rate 72. INR 1. Sodium 133, potassium 4.2, creatinine 0.57. ALT 71, alkaline phosphatase 159 otherwise liver function tests are normal. Magnesium 2.0. Troponin negative 1. TSH 0.362 with normal free T4 of 1.73. C-reactive protein 6.2. Home cardiac medications: Aspirin 81 mg daily, atorvastatin 80 mg at bedtime, lisinopril 30 mg daily. 04/16 Echocardiogram reveals EF of 60-65%. Patient denies any new concerns today. He has been started on colchicine and Motrin, recommended that while on this, continue Prilosec daily. Blood pressure 106/62, heart rate in the 80s and 90s. Physical examination: Gen: This is a 73-year-old male. He is resting in bed and appears to be comfortable and in no acute distress. VS: reviewed HEENT: Head is atraumatic, normocephalic. Pupils equal, round. Sclerae is anicteric. NECK: Supple. No JVD. LUNGS: Clear to auscultation. No wheezes or rhonchi. No intercostal retractions. HEART: Regular rate and rhythm. No murmur. ABDOMEN: Soft No tenderness. EXTREMITIES: No pedal edema. No calf tenderness. NEUROLOGICAL: Patient is awake, alert and oriented x3. Assessment: Likely pericarditis Recent viral illness Hypertension Dyslipidemia Diabetes Gout Plan: Continue patient on colchicine daily for 6 weeks and Motrin [id number] Take prilosec daily while on colchicine. Patient is cleared for discharge home and may follow up with Dr. Lala in 2 weeks. Thank you kindly for this consultation. Nurse practitioner note has been reviewed, I agree with documented findings and plan of care. Patient was seen and examined. Objective - Vital Signs Vital signs: Vital Signs Temp 98 F 04/16/23 07:57 Pulse 99 04/16/23 07:59 Resp 16 04/16/23 07:57 BP 116/71 04/16/23 07:57 Pulse Ox 93 L 04/16/23 09:53 FiO2 Intake & Output 04/15/23 04/16/23 04/16/23 18:59 06:59 18:59 Intake Total 118 240 Balance 118 240 Weight 77.111 kg Intake: Oral 118 240 Other: Voiding Method Toilet Toilet # Voids 1 # Bowel Movements 0 - Labs CBC & Chem 7: 04/15/23 07:33 04/15/23 07:33 Labs: Abnormal Lab Results - Last 24 Hours (Table) 04/15/23 04/15/23 04/16/23 Range/Units 12:10 16:55 06:34 POC Glucose (mg/dL) 115 H 145 H 127 H (70-110) mg/dL Microbiology - Last 24 Hours (Table) 04/14/23 15:44 Blood Culture - Preliminary Blood 04/14/23 15:44 Blood Culture - Preliminary Blood
--- NOTE | 2023-04-16 12:58 | P.DS ---
Providers Date of admission: 04/14/23 17:21 Expected date of discharge: 04/16/23 Attending physician: Ben Todd MD Consults: 04/14/23 17:22 Consult Physician Routine Consulting Provider: Emile Lala Consult Reason/Comments: pericarditis, pericardial effusion Do you want consulting provider notified?: Yes Primary care physician: Ryan Keller MD Hospital Course: Discharge Diagnosis: Acute pericarditis, suspected secondary to viral syndrome Pericardial effusion Trace bilateral pleural effusion noted on CT Stable right lower lobe 6 mm nodule density Sinus tachycardia Thrombocytosis Type 2 diabetes with hyperglycemia Hypertension Dyslipidemia Gout Hospital Course: 73-year-old male with history of hypertension, diabetes, gout, dyslipidemia presenting with chest discomfort and pleurisy. In the ED, his temperature was 97.6, pulse of 113, respiratory rate 18, blood pressure 133/79, saturating at 95% on room air. WBC 9.5, hemoglobin 13.3, platelets 549, sodium 133, creatinine 0.57, glucose 186, ALT 71, ALP 159, troponin negative, proBNP 88. EKG showed sinus tachycardia. Patient being admitted for observation for acute pericarditis with pericardial effusion. Cardiology was consulted. Echo showed LVEF 60-65%, small pericardial effusion. Being discharged home on scheduled ibuprofen and colchicine. Follow-up with cardiology in 2 weeks. Patient seen and examined at bedside. Vital signs reviewed and stable. General: nontoxic, no distress, appears at stated age Derm: warm, dry Head: atraumatic, normocephalic, symmetric Eyes: EOMI, no lid lag, anicteric sclera Mouth: no lip lesion, mucus membranes moist Cardiovascular: S1S2 reg, no murmur Lungs: CTA bilateral, no rhonchi, no rales , no accessory muscle use Abdominal: soft, nontender to palpation, no guarding, no appreciable organomegaly Ext: no gross muscle atrophy, no edema, no contractures Neuro: CN II-XI grossly intact, no focal neuro deficits Psych: Alert, oriented, appropriate affect A total of 36 minutes of time were spent preparing this complex discharge summary. Patient was discharged on 04/16/23 at 12:55. Patient Condition at Discharge: Stable Plan - Discharge Summary Discharge Rx Participant: No New Discharge Prescriptions: New Ibuprofen [Motrin] 600 mg PO TID #90 tab Colchicine [Colcrys] 0.6 mg PO DAILY #45 each Omeprazole [PriLOSEC] 20 mg PO AC-BRKFST #60 cap Continue Atorvastatin [Lipitor] 80 mg PO HS allopurinoL [Zyloprim] 100 mg PO DAILY Aspirin 81 mg PO DAILY Multivitamins, Thera [Multivitamin (formulary)] 1 tab PO DAILY lisinopriL [Zestril] 30 mg PO DAILY EPINEPHrine (Auto Inject) [Epipen] 0.3 mg IM ONCE PRN PRN Reason: Anaphylaxis Ubidecarenone [Coenzyme Q10] 200 mg PO DAILY Metformin Er 750mg Tablet 750 mg PO BID Discontinued Omeprazole [PriLOSEC] 20 mg PO DAILY PRN PRN Reason: Gi Upset Discharge Medication List Aspirin 81 mg PO DAILY 09/05/16 [History] Atorvastatin [Lipitor] 80 mg PO HS 09/05/16 [History] allopurinoL [Zyloprim] 100 mg PO DAILY 09/05/16 [History] EPINEPHrine (Auto Inject) [Epipen] 0.3 mg IM ONCE PRN 04/14/23 [History] Metformin Er 750mg Tablet 750 mg PO BID 04/14/23 [History] Multivitamins, Thera [Multivitamin (formulary)] 1 tab PO DAILY 04/14/23 [History] Ubidecarenone [Coenzyme Q10] 200 mg PO DAILY 04/14/23 [History] lisinopriL [Zestril] 30 mg PO DAILY 04/14/23 [History] Colchicine [Colcrys] 0.6 mg PO DAILY #45 each 04/16/23 [Rx] Ibuprofen [Motrin] 600 mg PO TID #90 tab 04/16/23 [Rx] Omeprazole [PriLOSEC] 20 mg PO AC-BRKFST #60 cap 04/16/23 [Rx] Follow up Appointment(s)/Referral(s): Emile Lala DO [STAFF PHYSICIAN] - 2 Weeks Ryan Keller MD [Primary Care Provider] - 1-2 days Patient Instructions/Handouts: Acute Pericarditis (DC) Activity/Diet/Wound Care/Special Instructions: Please see cardiology and PCP. Discharge Disposition: HOME SELF-CARE
== END 2023-04-16 14:04 | disposition home or self-care (01) ==
LOC: EC 15:19 → 3SCARD 17:21 → INTOOBSV 17:21 → 3SCARD 18:03
PROVIDERS: ADMIT Student in an Organized Health Care Education/Training Program; ATTEND Student in an Organized Health Care Education/Training Program
DX: I30.9 Acute pericarditis, unspecified (principal); I48.91 Unspecified atrial fibrillation; R74.01 Elevation of levels of liver transaminase levels; E87.1 Hypo-osmolality and hyponatremia; K21.9 Gastro-esophageal reflux disease without esophagitis; I10 Essential (primary) hypertension; E78.5 Hyperlipidemia, unspecified; N40.0 Benign prostatic hyperplasia without lower urinary tract symptoms; G47.30 Sleep apnea, unspecified; M10.9 Gout, unspecified; R91.1 Solitary pulmonary nodule; R00.0 Tachycardia, unspecified; D75.839 Thrombocytosis, unspecified; E11.65 Type 2 diabetes mellitus with hyperglycemia; Z87.891 Personal history of nicotine dependence; Z79.82 Long term (current) use of aspirin; Z79.84 Long term (current) use of oral hypoglycemic drugs; Z79.899 Other long term (current) drug therapy; Z88.2 Allergy status to sulfonamides
CPT/HCPCS: 96372 ×2; 99285; 36415; 94760; 93005; 93306; 84439; 83880; 80053 ×2; 85652; 84443; 83605; 83735; 84484; 85025 ×2; 85610; 85730; 86140; 87040; G0378 ×3; J1650 ×2

== ENCOUNTER → 2023-04-14 | Outpatient (CLI) | payer MEDICARE ==
[2023-04-14 11:03] LABS: African American GFR (CKD) >90 (>60 ml/min/1.73 sqM); Blood Urea Nitrogen 17 mg/dL (9-20); Non-African American GFR(CKD) >90 (>60 ml/min/1.73 sqM)
--- NOTE | 2023-04-14 11:58 | CT ---
EXAMINATION TYPE: CT chest w con CT DLP: 461.90 mGycm, Automated exposure control for dose reduction was used. DATE OF EXAM: 04/14/2023 11:47 AM COMPARISON: CT chest 02/07/2023, CT low-dose lung 01/17/2022, PET/CT 01/26/2021, chest radiograph 023. CLINICAL INDICATION:Male, 73 years old with history of J18.9 pneumonia; PHH, Pneumonia, MITUL TECHNIQUE: Multiple axial images were obtained through the chest following the administration of 100 cc of Isovue 300. . Coronal and sagittal reformats reviewed. FINDINGS: LUNGS/ PLEURA: No pneumothorax. Trace bilateral pleural effusions. Mild centrilobular and paraseptal emphysematous changes in the upper lobes. Stable 6 mm pulmonary nodular density within the medial as pect of the right lower lobe (series 4, image 25). No new or enlarging pulmonary nodules. Resolution of previous demonstrated pneumonitis change within the posterior lateral right upper lobe. No focal c onsolidation. AIRWAY: Patent and unremarkable.. HEART: Size within normal limits. Small peripheral enhancing pericardial effusion with a maximum thic kness of 1.4 cm. Moderate coronary artery calcifications. MEDIASTINUM: No gross evidence of adenopathy. VASCULATURE: No aortic aneurysm. Atherosclerotic calcification of the aorta and its branches MUSCULOSKELETAL: No acute osseous abnormalities. Findings compatible with DISH. SOFT TISSUES/LYMPH NODES: Unremarkable. LOWER NECK: No significant findings. UPPER ABDOMEN: Small hiatal hernia. IMPRESSION: 1. New small peripheral enhancing pericardial effusion. Findings can be seen with an infectious/infla mmatory pericarditis. 2. Stable right lower lobe 6 mm nodular density. No new or enlarging pulmonary nodules. No focal cons olidation. 3. Trace bilateral pleural effusions.
== END | disposition home or self-care (01) ==
LOC: RADCTMAIN 10:16
PROVIDERS: ATTEND Internal Medicine
DX: J18.9 Pneumonia, unspecified organism (principal); I31.39 Other pericardial effusion (noninflammatory); J90 Pleural effusion, not elsewhere classified; J98.4 Other disorders of lung; R91.1 Solitary pulmonary nodule
CPT/HCPCS: 82565; 84520; 71260; 36415; Q9967

== ENCOUNTER → 2023-11-27 | Outpatient (CLI) | payer MEDICARE ==
--- NOTE | 2023-11-27 13:11 | CT ---
EXAMINATION TYPE: CT brain wo con DATE OF EXAM: 11/27/2023 COMPARISON: None available HISTORY: 73-year-old male hemorrhage f/u, RIGHT SIDE WEAKNESS TECHNIQUE: Examination was done in axial plane without intravenous contrast. Coronal and sagittal r econstructions performed. CT DLP: 1106 mGycm Automated exposure control for dose reduction was used. FINDINGS: There is focal cortical and subcortical hypodensity in the superior left frontal lobe extending down into the deep white matter region. Otherwise, there is no evidence of acute intracranial hemorrhage, acute ischemic changes, mass, mass -effect, or extra-axial fluid collection. There is no effacement of cerebral sulci or basal subarach noid cisterns. There is no hydrocephalus. There is no midline shift. Malone-white matter distinction is preserved. Slight leftward nasal septal deviation. Trace mucosal thickening left maxillary sinus and anterior le ft ethmoid air cells. Orbits and globes are intact. Mastoid air cells are pneumatized. IMPRESSION: Parenchymal hypodensity, possible developing encephalomalacia superior left frontal lobe. No priors a vailable for comparison purposes. Correlate as to time since patient's hemorrhage or injury. No resid ual or recurrent acute intracranial hemorrhage is seen. No midline shift or other acute intracranial abnormality seen. Additional follow-up as clinically indicated.
== END | disposition home or self-care (01) ==
LOC: RADCTMAIN 09:10
PROVIDERS: ATTEND Internal Medicine
DX: I61.9 Nontraumatic intracerebral hemorrhage, unspecified (principal)
CPT/HCPCS: 70450

== ENCOUNTER → 2023-12-20 | Outpatient (CLI) | payer MEDICARE ==
--- NOTE | 2023-12-20 23:08 | MR ---
EXAMINATION TYPE: MR brain wo/w con DATE OF EXAM: 12/20/2023 COMPARISON: CT brain November 27, 2023 HISTORY: Rt arm/leg weakness. Nontraumatic intracerebral hemorrhage. TECHNIQUE: Multiplanar, multisequence images of the brain and brainstem is performed without and with IV contras t, utilizing 7.5 mL intravenous Gadavist . FINDINGS: Diffusion weighted images demonstrate no evidence of a recent infarct or other diffusion ab normality. Background mild ventricular and sulcal prominence redemonstrated. There are scattered smal l foci of T2 hyperintensity seen throughout the white matter bilaterally. Approximately 30 scattered lesions are seen. In addition there is evidence of old hemorrhagic infarct high left posterior fronta l lobe near axial image 26. Midline structures demonstrate normal morphology. The craniocervical junction appears within normal limits. Post contrast images demonstrate no abnormal enhancement. The dural venous sinuses appear pa tent. The visualized sinuses are clear and the globes are intact. IMPRESSION: 1. There is mild diffuse cerebral atrophy and fairly moderate probable chronic small vessel ischemic change. 2. 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
== END | disposition home or self-care (01) ==
LOC: RADMRIMAIN 14:09
PROVIDERS: ATTEND Psychiatry & Neurology Neurology
DX: I61.9 Nontraumatic intracerebral hemorrhage, unspecified (principal); R53.1 Weakness; G31.9 Degenerative disease of nervous system, unspecified
CPT/HCPCS: 70553; A9585